=== PATIENT | male | born 1945 | race Caucasian/White ===

== ENCOUNTER → 2017-08-11 09:47 | Outpatient (CLI) | payer MEDICARE ==
[~2017-08-11 09:47] MED LIST: ATIVAN2 MG PO; COLACE100 MG PO; FLOMAX0.4 MG PO; JUBLIA 10%; LIPITOR20 MG PO; METOPROLOL TART50 MG PO; MORPHINE IMMEDI15 MG PO; MORPHINE SULFAT15 M4 PO; NORVASC2.5 MG PO; PLAVIX75 MG PO; RISPERDAL1 MG PO; SAW PALMETTO450 MG PO; SEROQUEL XR300 MG PO; SEROQUEL300 MG PO; TRILEPTAL300 MG PO; WELLBUTRIN SR150 MG PO
[2017-08-12 15:02] VITALS: BMI 26.0
== END | disposition home or self-care (01) ==
LOC: D.US 09:47
DX: I10 Essential (primary) hypertension (principal); I70.1 Atherosclerosis of renal artery; R09.89 Other specified symptoms and signs involving the circulatory and respiratory systems; I71.4 Abdominal aortic aneurysm, without rupture

== ENCOUNTER 2017-08-12 07:29 | Outpatient (CLI) | payer MEDICARE ==
[~2017-08-12] VITALS: Ht 180.3 cm; Wt 83.6 kg
[2017-08-12] VITALS (10 sets, daily range): BP systolic 123–168; BP diastolic 63–77; Ht 180.3 cm; Wt 83.6 kg
--- NOTE | ~2017-08-12 | HEMODYNAMI ---
PATIENT:JESSICA RAMOS MEDICAL RECORD: [id number] : 41 LOCATION:[facility] ADMISSION DATE: 08/12/17 Generatedon:08/12/201712:00 Patient name: JESSICA RAMOS Patient #: [id number] SSN: D OB: 1945 Date of study: 08/12/2017 Page: Of Hemodynamic Procedure Report Patient Data Patient Demographics Procedure consent was obtained First Name: JESSICA Gender: Male Last Name: RACHEL : 1945 Middle Initial: R Age: 72 year(s) Patient #: [id number] Race: Unknown Additional ID: [id number] Contact details [address]: [address] [place] [address] State: [place] City: [place] Zip code: [address] Past Medical History Allergies Allergen Reaction Date Comments Reported Other allergy 08/12/2017 Iodine, PCN, Adhesive tape, Ibuprofen Admission Admission Data Admission Date: 08/12/2017 Admission Time: 7:29 Admit Source: Other Lab Results Lab Result Date: 08/12/2017 Lab Result Time: 8:30 Biochemistry Name Units Result Min Max BUN mg/dl 22 --(----)-* 7 18 Creatinine mg/dl 1.6 --(----)-* 0.6 1.3 CBC Name Units Result Min Max Hematocrit % 35.9 *-(----)-- 42 54 Hemoglobin g/dl 11.7 *-(----)-- 13.5 17.5 Procedure Procedure Types Cath Procedure Peripheral Cath Diagnostic Procedure Cath Peripheral Four Vessel Arteriogram Renal Arteriogram Abd/Extremity Aortagram Procedure Description Procedure Date Procedure Date: 08/12/2017 Procedure Start Time: 10:35 Procedure End Time: 11:55 Procedure Staff Name Function Elias Pierson MD Performing Physician Ish Monteiro RT Monitor Elizabeth Barlow RT Scrub Ivan Meraz RN Nurse Procedure Data Cath Procedure Fluoroscopy Diagnostic fluoroscopy Total fluoroscopy Time: time: 20.8 min 20.8 min Diagnostic fluoroscopy Total fluoroscopy dose: dose: 1341 mGy 1341 mGy Contrast Material Contrast Material Type Amount (ml) Isovue 300 105 Entry Location Entry Primary Successful Side Size Upsize Upsize Entry Closure Succes sful Closure Location (Fr) 1 (Fr) 2 (Fr) Remarks Device Remarks Femoral Right 5 Fr 6 Fr 7 Fr Exoseal artery Short Short Estimated blood loss: 10 ml Diagnostic catheters Device Type Used For End Catheter Placement DIAGNOSTIC MPA-2 5Fr Procedure catheter ([id number]) DIAGNOSTIC 3DRC 5Fr Procedure catheter ([id number]) Procedure Complications No complications Procedure Medications Medication Administration Route Dosage Oxygen NC 2 l/min Lidocaine 2% added to field 20 Heparin Flush Bag added to field 2 bags (1000units/500ml NS) 0.9% NaCl I.V. 100 ml/hr Versed I.V. 2 mg Fentanyl I.V. 25 mcg Versed I.V. 1 mg Heparin Bolus I.V. 2000 units Heparin Bolus I.V. 5000 units Hydralizine I.V. 10 mg Versed I.V. 1 mg Hemodynamics Rest HGB: 11.7 (g/dl) Heart Rate: 85 (bpm) Snapshots Pre Cath Intra NCS Post Cath Vital Signs Time Heart Resp SPO2 etCO2 NIBP (mmHg) Rhythm Pain Sedation Rate (ipm) (%) (mmHg) Status Level (bpm) 10:29:47 82 16 100 33 182/89(133) NSR 0 (11) 10(A) , No pain 10:34:42 83 14 100 33.8 165/81(132) NSR 0 (11) 10(A) , No pain 10:39:31 80 15 100 33 167/80(140) NSR 0 (11) 10(A) , No pain 10:44:19 78 15 100 0 161/74(129) NSR 0 (11) 10(A) , No pain 10:49:04 79 16 100 15 155/87(128) NSR 0 (11) 10(A) , No pain 10:53:51 83 16 100 18 156/85(120) NSR 0 (11) 10(A) , No pain 10:58:40 80 17 100 12 169/82(133) NSR 0 (11) 10(A) , No pain 11:03:31 80 15 100 0 169/88(129) NSR 0 (11) 10(A) , No pain 11:08:15 78 16 99 25.5 153/88(130) NSR 0 (11) 10(A) , No pain 11:13:02 83 14 100 18 151/87(122) NSR 0 (11) 10(A) , No pain 11:18:34 82 13 100 0 155/94(129) NSR 0 (11) 10(A) , No pain 11:23:21 79 14 100 0 165/89(127) NSR 0 (11) 10(A) , No pain 11:28:11 76 15 99 21.7 168/78(143) NSR 0 (11) 10(A) , No pain 11:33:03 78 13 100 12 167/87(132) NSR 0 (11) 10(A) , No pain 11:37:53 78 13 100 0 154/93(128) NSR 0 (11) 10(A) , No pain 11:42:40 82 15 100 0 165/88(141) NSR 0 (11) 10(A) , No pain 11:47:29 79 16 100 30 174/89(130) NSR 0 (11) 10(A) , No pain 11:52:18 83 17 100 29.9 155/91(130) NSR 0 (11) 10(A) , No pain Medications Time Medication Route Dose Verified Delivered Reason Notes Effectiveness by by 10:28:21 Oxygen NC 2 Elias Buffie used for l/min Jeison hampton MD 10:28:27 Lidocaine 2% added 20ml Elias Elias for local to vial Jeison Pierson MD anesthetic field [facility] 10:28:34 Heparin Flush added 2 Elias Elias used for Bag to bags Jeison Pierson MD procedure (1000units/500ml field [place] NS) 10:28:43 0.9% NaCl I.V. 100 Elias Buffie Per physician ml/hr Jeison Meraz RN, MD 10:34:09 Versed I.V. 2 mg Elias Buffie for sedation Jeison Meraz RN, MD 10:34:18 Fentanyl I.V. 25 Elias Buffie for sedation mcg Jeison Meraz RN, MD 10:36:38 Versed I.V. 1 mg Elias Buffie for sedation Jeison Meraz RN, MD 10:51:21 Heparin Bolus I.V. 2,000 Elias Ivan for verifi ed units Jeison Meraz RN anticoagulation with dr MD pierson 11:06:15 Heparin Bolus I.V. 5000 Elias Ivan for verifi ed units Jeison Meraz RN anticoagulation with dr MD pierson 11:48:39 Hydralizine I.V. 10 mg Elias Ivan for Jeison Meraz RN hypertension MD 11:50:08 Versed I.V. 1 mg Elias Love for sedation Jeison Meraz RN, MD Procedure Log Time Note 10:05:37 Informed consent obtained and on chart 10:05:41 Admit Source: Other 10:06:01 Diagnostic Cath status Elective 10:06:04 Elizabeth Yen RT(R) sent for patient. Start room use. 10:06:05 Time tracking: Regular hours 10:06:08 Plan of Care:Hemodynamics will remain stable., Cardiac rhythm will remain stable., Comfort level will be maintained., Respiratory function will remain adequate., Patient/ family verbilizes understanding of procedure., Procedure tolerated without complication., Recovers from procedure without complications.. 10:07:57 Lab Result : Hemoglobin 11.7 g/dl 10:07:57 Lab Result : Creatinine 1.6 mg/dl 10:07:57 Lab Result : BUN 22 mg/dl 10:07:57 Lab Result : Hematocrit 35.9 % 10:10:57 Procedure type changed to Cath procedure, Peripheral Cath Diagnostic Procedure, Cath Peripheral, Four Vessel Arteriogram, Renal Arteriogram, Abd/Extremity, Aortagram 10:16:57 Patient received from Pre/Post Procedure Room to CCL 1 Alert and oriented. Tansferred to table in Supine position. 10:17:01 Warm blankets applied, and ml hugger turned on for patient comfort. 10:17:02 Correct patient and procedure confirmed by team. 10:17:03 ECG and BP/O2 sat monitors applied to patient. 10:28:21 Oxygen 2 l/min NC was administered by Ivan Meraz RN; used for procedure; 10:28:27 Lidocaine 2% 20ml vial added to field was administered by Elias Pierson MD; for local anesthetic; 10:28:34 Heparin Flush Bag (1000units/500ml NS) 2 bags added to field was administered by Elias Pierson MD; used for procedure; 10:28:43 0.9% NaCl 100 ml/hr I.V. was administered by Ivan Meraz RN; Per physician; 10:28:46 Vital chart was started 10:31:37 Baseline sample Acquired. 10:31:44 Rhythm: sinus rhythm 10:31:45 Full Disclosure recording started 10:32:01 H&P Date Dictated: 08/10/2017 Within 30 days and on chart., H&P Addendum completed by physician on day of procedure. (MUST COMPLETE FOR ALL OUTPATIENTS). 10:32:03 Pre-procedure instructions explained to patient. 10:32:03 Pre-op teaching completed and patient verbalized understanding. 10:32:05 Family in waiting room. 10:32:06 Patient NPO since Midnight. 10:32:26 Patient allergic to Other allergyIodine, PCN, Adhesive tape, Ibuprofen 10:32:28 Is the patient allergic to Iodine/contrast media? No. 10:32:29 Is patient on blood thinner?Yes 10:32:31 ACC The patient was administered the following blood thiners within the last 24 hours: ACCPlavix 10:32:33 Patient diabetic? No. 10:32:35 Previous problem with sedation/anesthesia? No ? 10:32:36 Snore? Yes 10:32:37 Sleep apnea? No 10:32:38 Deviated septum? No 10:32:40 Opens mouth fully? Yes 10:32:40 Sticks out tongue? Yes 10:32:42 Airway obstruction? No ? 10:32:45 Dentures? Yes in tight 10:32:48 Pre procedure: right dorsailis pedis pulse 2+ Normal; easily identifiable; not easily obliterated 10:32:50 Patient pain scale 0/10 ?. 10:33:01 IV patent on arrival in left forearm with 0.9% NaCl at [facility]. 10:33:03 Lab results completed and on chart. 10:33:05 Right groin area was prepped with chlora-prep and draped in sterile fashion 10:33:06 Alarms reviewed by R. N. 10:33:06 Sharps counted by scrub and verified by R.N. 10:33:14 Use device set Acist 10:33:25 Use device set CATH PACK 10:33:28 ACIST Syringe (34071) opened to sterile field. 10:33:29 ACIST Hand Control (97270) opened to sterile field. 10:33:29 ACIST Manifold (03636) opened to sterile field. 10:33:29 ACIST Syringe (46389) opened to sterile field. 10:33:30 ACIST Hand Control (52247) opened to sterile field. 10:33:31 ACIST Manifold (37094) opened to sterile field. 10:33:32 Medline Cath Pack ([id number]) opened to sterile field. 10:33:32 Bag Decanter (2002S) opened to sterile field. 10:33:32 DIAGNOSTIC WIRE .035 260cm J wire (320840) opened to sterile field. 10:33:37 Physician arrived 10:33:38 --------ALL STOP TIME OUT------ 10:33:38 Final Timeout: patient, procedure, and site verified with staff and physician. All members of the team are in agreement. 10:33:39 Right groin site verified by team. 10:33:42 Physical assessment completed. ASA score P 2 - A patient with mild systemic disease as per Elias Pierson MD. 10:33:54 Sedation plan: IV Moderate Sedation Medication:Versed, Fentanyl 10:34:09 Versed 2 mg I.V. was administered by Ivan Meraz RN; for sedation; 10:34:18 Fentanyl 25 mcg I.V. was administered by Ivan Meraz RN; for sedation; 10:35:41 Procedure started. 10:35:44 Local anesthetic to right femoral artery with Lidocaine 2% by Elias Pierson MD.INITIAL ACCESS ONLY 10:36:06 Zero performed for pressure channel P1 10:36:38 Versed 1 mg I.V. was administered by Ivan Meraz RN; for sedation; 10:36:56 Access obtained with 4Fr micropunture. 10:38:02 SHEATH 5FR Zoe (VNO280) opened to sterile field. 10:38:05 MICROPUNCTURE 4FR Cook (Z17088) opened to sterile field. 10:38:18 A 5 Fr sheath was inserted into the Right Femoral artery 10:41:16 Right subclavian angiography performed 10:41:17 Right carotid angiography performed. 10:42:04 GLIDE WIRE ANGLE 260cm (OI4297) opened to sterile field. 10:50:05 Catheter exchanged over wire. 10:50:08 A DIAGNOSTIC MPA-2 5Fr catheter ([id number]) was advanced over the wire and used for Procedure. 10:51:21 Heparin Bolus 2,000 units I.V. was administered by Ivan Meraz RN; for anticoagulation; verified with dr pierson 10:54:31 Right carotid angiography performed. 10:56:57 Catheter exchanged over wire. 10:57:02 A DIAGNOSTIC 3DRC 5Fr catheter (856409O) was advanced over the wire and used for Procedure. 10:57:11 Bilateral renal angiography performed. 11:00:19 Catheter removed. 11:00:24 SHEATH 6FR Zoe (YND684) opened to sterile field. 11:00:39 INFLATOR Merit BasixCompak (BR0362) opened to sterile field. 11:04:58 GUIDE 6FR LLOYD 90 catheter ([id number]) opened to sterile field. 11:06:15 Heparin Bolus 5000 units I.V. was administered by Ivan Meraz RN; for anticoagulation; verified with dr pierson 11:07:38 BMW 300cm [place] 2 J wire ([id number]) opened to sterile field. 11:07:55 COPILOT Valve Control (2734824) opened to sterile field. 11:08:32 Sheath upsized to a 6 Fr Short. 11:08:40 6 Fr LLOYD guide catheter was inserted over the wire 11:08:45 BMW wire advanced. 11:09:20 Wire advanced across lesion. 11:12:27 Wire removed. 11:12:30 Guide catheter removed. 11:12:36 SHEATH 7FR Zoe (WPB200) opened to sterile field. 11:13:29 Sheath upsized to a 7 Fr Short. 11:16:06 Cordis 7Fr RDC guide catheter opened to sterile field. 11:16:15 7 Fr RDC guide catheter was inserted over the wire 11:18:49 BMW wire advanced. 11:29:43 The MARK 5 x 29 x 135 stent ([id number]) was advanced then removed because of failure to cross lesion 11:30:02 Wire removed. 11:34:04 BMW wire advanced. 11:34:44 Wire advanced across lesion. 11:37:15 HERCULINK ELITE 5 X 15 X 80 stent ([id number]) was deployed across Mid Renal, Left . 11:38:58 Stent catheter was removed intact over wire. 11:43:06 HERCULINK 5 X 15 STENT BALOON REINFLATED TO 9 ATMS 11:43:09 HERCULINK 5 X 15 STENT BALOON REINFLATED TO 10 ATMS 11:43:17 HERCULINK ELITE 5 X 18 X 80 stent ([id number]) was deployed across Proximal Renal, Left . 11:43:41 HERCULIN ELITE 5X 8 STENT BALOON WAS REINFLATED TO 15 ATMS. 11:43:45 Stent catheter was removed intact over wire. 11:43:48 Wire removed. 11:44:04 Guide catheter removed. 11:44:11 EXOSEAL 7Fr (EX700) opened to sterile field. 11:48:39 Hydralizine 10 mg I.V. was administered by Ivan Meraz RN; for hypertension; 11:49:14 Sheath removed intact; hemostasis achieved with Exoseal to the Right Femoral artery. 11:49:19 Procedure ended.(Physican Out) 11:49:41 Fluoroscopy time 20.80 minutes. 11:49:46 Fluoroscopy dose: 1341 mGy 11:49:46 Flurop Dose total: 1341 11:49:49 Contrast amount:Isovue 300 105ml. 11:49:51 Sharps counted by scrub and verified by R.N. 11:49:52 Insertion/operative site no bleeding no hematoma. 11:49:54 Post-op/insertion site Right Femoral artery dressed using a 4 x 4 and Tegaderm. 11:49:59 Post right femoral artery:stable, soft, clean and dry 11:50:00 Post Procedure Pulses reassessed and unchanged 11:50:02 Post-procedure physical assessment completed. ASA score P 2 - A patient with mild systemic disease as per Elias Pierson MD. 11:50:05 Post procedure rhythm: unchanged. 11:50:08 Versed 1 mg I.V. was administered by Ivan Meraz RN; for sedation; 11:50:11 Estimated blood loss: 10 ml 11:50:12 Post procedure instruction explained to patient.Patient verbalizes understanding. 11:50:13 Patient needs reinforcement of post procedure teaching. 11:55:36 Procedure Complication : No complications 11:55:39 Procedure and supply charges have been captured, reviewed, submitted and are correct. 11:55:43 Vital chart was stopped 11:55:44 See physician's report for complete and final results. 11:55:45 Report given to Pre/Post Procedure Room. 11:55:48 Patient transfered to Pre/Post Procedure Room with Stretcher. 11:55:58 Procedure ended. 11:55:58 Full Disclosure recording stopped 11:57:21 End room use (Document Last) Intervention Summary Intervention Notes Time ActionType Lesion and Equipment Action# Pressure Duration Attributes Used 11:29:43 Discard MARK 5 x Stent 29 x 135 stent ([id number]) 11:37:15 Deploy self Mid Renal, HERCULINK 1 9 expanding Left ELITE 5 X stent 15 X 80 stent ([id number]) 11:43:17 Deploy self Proximal HERCULINK 1 13 expanding Renal, Left ELITE 5 X stent 18 X 80 stent ([id number]) Device Usage Item Name Manufacture Quantity Catalog Hospital Part Current Minima l Lot# / Number Charge Number Stock Stock Serial# Code ACIST Syringe Acist 2 81203 251042 549258 919314 20 (05359) Medical Systems Inc ACIST Hand Acist 2 75208 253911 730712 069290 5 Control Medical (17158) Systems Inc ACIST Acist 2 02559 493786 747162 828950 5 Manifold Medical (86617) Systems Inc Medline Cath Cardinal 1 [id number] 226274 50556 798499 5 Pack Health ([id number]) Bag Decanter Microtek 1 2001S 209896 85117 469298 5 (2001S) Medical Inc. DIAGNOSTIC [facility] [place] 1 857152 617631 384340 874191 30 WIRE .035 260cm J wire (571781) SHEATH 5FR Terumo 1 CIH307 242280 495466 981510 40 Zoe (FLZ443) GLIDE WIRE Terumo 1 KD0766 798889 276170 537208 5 ANGLE 260cm (OL2506) DIAGNOSTIC Cardinal 1 [id number] 838592 532920 334725 5 MPA-2 5Fr Health catheter (350877F) DIAGNOSTIC Cardinal 1 [id number] 001927 507650 759193 9 3DRC 5Fr Health catheter (605471C) SHEATH 6FR Terumo 1 FMF265 673124 945577 349608 40 Zoe (HGW263) INFLATOR Merit 1 PZ4720 052606 353003 421492 15 [facility] BasixCompak (IG5244) GUIDE 6FR LLOYD Medtronic 1 WD2ESUH 483629 12696 399826 1 90 catheter ([id number]) BMW 300cm Mack 1 [id number] 183467 732436 012378 5 [place] 2 J Vascular wire (7340671N) COPILOT Valve Mack 1 3110238 408865 087198 852515 5 Control Vascular (8369279) SHEATH 7FR Terumo 1 IBJ113 483197 677680 519323 5 Zoe (XLJ345) Cordis 7Fr Cardinal 1 [id number] 518608 130413 639114 5 [facility] guide Health catheter MARK 5 x Cardinal 1 [id number] 065824 42632 384607 5 29 x 135 Health stent ([id number]) HERCULINK Mack 1 [id number] 207297 932609 5 2553227 ELITE 5 X 15 Vascular X 80 stent ([id number]) HERCULINK Mack 1 1942139-85 788426 234058 5 7746437 ELITE 5 X 18 Vascular X 80 stent ([id number]) EXOSEAL 7Fr Cardinal 1 EX700 840879 583051 228196 5 (EX700) Health MICROPUNCTURE [facility] 1 P60559 774374 692673 533015 5 4FR [place] (Q75028) Signature Audit [place] Stage Time Signature Unsigned Intra-Procedure 08/12/2017 Ish Monteiro 12:00:40 PM RT(R) Signatures Monitor : Ish Monteiro RT Signature : Date : Time : [facility] [address] [place], [place] [address]
--- NOTE | ~2017-08-12 | EC ---
PATIENT:JESSICA RAMOS DATE OF SERVICE: 08/12/17 SEX: M MEDICAL RECORD: [id number] DATE OF : 41 LOCATION:[facility] AGE OF PATIENT: 72 ADMISSION DATE: 08/12/17 REFERRING PHYSICIAN: INTERPRETING PHYSICIAN: TRISTA ARREDONDO MD ECHOCARDIOGRAM REPORT ECHO CHARGES DATE: CLINICAL DIAGNOSIS: ECHOCARDIOGRAPHIC MEASUREMENTS (adult normal given) AC root (d.<3.7cm) cm LV Septum d (<1.2 cm> cm Valve Excursion cm LV Septum (systole) cm Left Atria (s.<4.0cm> cm LVPW d(<1.2cm) cm RV (d.<2.3cm) cm LVPW (sytole) cm LV diastole(<5.6CM) cm MV E-F(>70mm/sec) cm LV systole cm LVOT Diameter cm MV exc.(>10mm) cm Est.ejection fraction (50-75%) % DOPPLER: LVIT cm/sec A cm/sec E cm/sec LA cm/sec RVSP mmHg LVOT cm/sec AOP1/2T m/s Asc. Ao cm/sec RVOT cm/sec RA cm/sec PA cm/sec AV Gradient Peak mmHg AV Mean mmHg AV Area cm MV Gradient Peak mmHg MV Mean mmHg MV Area cm COMMENTS: Gatehouse Attendant: Caddymaster: COLUMBA# Pericardial Effusion DATE OF SERVICE: 08/11/2017 PROCEDURE: Transthoracic echocardiogram. FINDINGS: 1. Left ventricle is hyperdynamic. There is left ventricular hypertrophy that is moderate in its size. 2. The inflow characteristics consistent with diastolic dysfunction. The ejection fraction is 65% to 70%. 3. The mitral valve is not well visualized, but overall grossly normal. ECHOCARDIOGRAM REPORT [id number] JESSICA RAMOS 4. The left atrium is normal size, normal function. 5. The aortic valve shows an increased gradient with what appears to be thickened and heavily calcified leaflets. It is poorly visualized overall. Peak pressure across the aortic valve is 73 with mean pressure of 49. 6. The mitral valve has trace mitral regurgitation. 7. Tricuspid valve has mild tricuspid regurgitation. The other structures are not well visualized either. This is difficult to read study with a suggestion of severe aortic stenosis. Transesophageal echocardiogram may be helpful. The patient has preserved LV systolic function. TRANSINT:[id number] Voice Confirmation ID: [id number] DOCUMENT ID: [id number] 08/19/2017 Edited to correct date of service, dmm. TRISTA ARREDONDO MD at 0924 CC: [id number] DICTATION DATE: 08/16/17921 SAFETY EQUIPMENT TESTER: 08/16/17 1151 DEP CLI 08/13/17 [place] [id number] [place] [id number]
[2017-08-12] MEDS ORDERED: SEROQUEL300 MG PO (08:14)
[2017-08-12] MEDS ORDERED: WELLBUTRIN SR150 MG PO (08:15)
[2017-08-12] MEDS ORDERED: TRILEPTAL300 MG PO (08:15)
[2017-08-12] MEDS ORDERED: MORPHINE SULFAT15 M4 PO (08:15)
[2017-08-12] MEDS ORDERED: FLOMAX0.4 MG PO (08:16)
[2017-08-12] MEDS ORDERED: RISPERDAL1 MG PO (08:16)
[2017-08-12] MEDS ORDERED: SAW PALMETTO450 MG PO (08:16)
[2017-08-12] MEDS ORDERED: PLAVIX75 MG PO (08:17)
[2017-08-12 08:44] LABS: BASOPHILS 0.2 % (0-2); HEMATOCRIT 35.9 % (42.0-54.0); HEMOGLOBIN 11.7 g/dL (13.5-17.5); IMMATURE GRANULOCYTES 0.2 % (0-5); LYMPHOCYTES 12.7 % (15-50); MCH 28.4 pg (26.0-34.0); MCHC 32.6 g/dL (31.0-37.0); MCV 87.1 fL (80.0-100.0); MEAN PLATELET VOLUME 9.2 fL (7.4-10.4); NEUTROPHILS 70.9 % (40-80); PLATELET COUNT 190 10x3/uL (130-400); RBC 4.12 10x6/uL (4.20-6.10); RDW 13.7 % (11.5-14.5); WBC 6.3 10x3/uL (4.8-10.8)
[2017-08-12 09:11] LABS: ALBUMIN 3.6 g/dL (3.4-5.0); ANION GAP 13.9 mmol/L (8-16); BILIRUBIN - TOTAL 0.5 mg/dL (0.2-1.3); CALCIUM 9.4 mg/dL (8.5-10.1); CARBON DIOXIDE 25.3 mmol/L (21.0-32.0); CREATININE - SERUM 1.6 mg/dL (0.6-1.3); POTASSIUM - SERUM 4.2 mmol/L (3.5-5.1); PROTEIN - SERUM 8.2 g/dL (6.4-8.2)
[2017-08-12] MEDS ORDERED: NORVASC2.5 MG PO (15:49)
[2017-08-12] MEDS ORDERED: MORPHINE IMMEDI15 MG PO (15:50)
[2017-08-12] MEDS ORDERED: ATIVAN2 MG PO (15:51)
[2017-08-12] MEDS ORDERED: SEROQUEL XR300 MG PO (20:14)
[2017-08-12] MEDS ORDERED: COLACE100 MG PO (20:19)
[2017-08-12] MEDS ORDERED: JUBLIA 10% (20:23)
[2017-08-13] VITALS (9 sets, daily range): BP systolic 111–150; BP diastolic 49–63
[2017-08-13] MEDS ORDERED: LIPITOR20 MG PO (08:12)
[2017-08-13] MEDS ORDERED: METOPROLOL TART50 MG PO (08:12)
== END 2017-08-13 10:10 ==
LOC: D.CATH 07:29 → D.CVICU 14:55 → D.CATH 08-13 10:10
PROVIDERS: Internal Medicine Cardiovascular Disease
DX: I70.1 Atherosclerosis of renal artery (principal); I10 Essential (primary) hypertension; I71.4 Abdominal aortic aneurysm, without rupture; Z79.891 Long term (current) use of opiate analgesic; Z79.02 Long term (current) use of antithrombotics/antiplatelets; Z79.899 Other long term (current) drug therapy; Z01.812 Encounter for preprocedural laboratory examination; Z12.5 Encounter for screening for malignant neoplasm of prostate

== ENCOUNTER → 2017-09-08 17:46 | Outpatient (CLI) | payer MEDICARE ==
[2017-08-12 15:02] VITALS: BMI 26.0
[2017-09-08 20:56] LABS: CHOL - HDL RATIO 3.8 ratio (2.3-4.9); LDL-HDL RATIO 2.3 ratio (1.5-3.5)
== END | disposition home or self-care (01) ==
LOC: D.LABREF 17:46
PROVIDERS: Internal Medicine Cardiovascular Disease
DX: E78.5 Hyperlipidemia, unspecified (principal)